=== PATIENT | male | born 1995 | race Caucasian/White ===

== ENCOUNTER 2018-01-09 08:35 | Emergency (ER) | payer SELFPAY ==
[2018-01-09] MEDS: TRIMETHOPRIM/SULFAMETHOX (DS) TAB PO (09:11)
[2018-01-09] MEDS: CEPHALEXIN 500 MG CAP PO (09:11)
[2018-01-09] MEDS: HYDROCODONE/APAP (5/325) TAB PO (09:11)
[2018-01-09] MEDS: ONDANSETRON (ODT) 4 MG TAB ODT (09:11)
[2018-01-09] MEDS: CLINDAMYCIN 300 MG INJ IM (09:12)
[2018-01-09] MEDS: DEXAMETHASONE 10 MG/ML 1 ML INJ IM (10:46)
== END 2018-01-09 11:07 | disposition home or self-care (01) ==
LOC: FTE 08:35
DX: M70.52 Other bursitis of knee, left knee (principal); L03.116 Cellulitis of left lower limb; Y93.89 Activity, other specified
CPT/HCPCS: 73562; 96372; 99284-25